=== PATIENT | male | born 1995 | race Caucasian/White ===

== ENCOUNTER 2020-01-09 23:52 | Emergency (ER) | payer OTHER ==
--- OUTSIDE RECORDS SUMMARY | 2020-01-10 00:17 | XMS ---
:1995 [facility] Providers Name Role Phone Chumaceiro, Abelardo Unavailable Unavailable Chumaceiro, Abelardo Unavailable Unavailable Chumaceiro, Abelardo Unavailable Unavailable Chumaceiro, Abelardo Unavailable Unavailable Chumaceiro, Abelardo Unavailable Unavailable Chumaceiro, Abelardo Unavailable Unavailable Chumaceiro, Abelardo Unavailable Unavailable Chumaceiro, Abelardo Unavailable Unavailable ED STAFF PHYSICIAN, STAFF Unavailable Unavailable AUGUSTUS Khoury Unavailable Unavailable VEENA GALLEGO Unavailable Unavailable Re-disclosure Warning The records that you are about to access may contain information from federally- assisted alcohol or drug abuse programs. If such information is present, then the following federally mandated warning applies: This information has been disclosed to you from records protected by federal confidentiality rules (42 CFR part 2). The federal rules prohibit you from making any further disclosure of this information unless further disclosure is expressly permitted by the written consent of the person to whom it pertains or as otherwise permitted by 42 CFR part 2. A general authorization for the release of medical or other information is NOT sufficient for this purpose. The Federal rules restrict any use of the information to criminally investigate or prosecute any alcohol or drug abuse patient.The records that you are about to access may contain highly sensitive health information, the redisclosure of which is protected by Article 27-F of the [place] Public Health law. If you continue you may haveaccess to information: Regarding HIV / AIDS; Provided by facilities licensed or operated by the [facility] Office of Mental Health; or Provided by the [facility] Office for People With Developmental Disabilities. If such information is present, then the following [facility] mandated warning applies: This information has been disclosed to you from confidential records which are protected by state law. State law prohibits you from making any further disclosure of this information without the specific written consent of the person to whom it pertains, or as otherwise permitted by law. Any unauthorized further disclosure in violation of state law may result in a fine or skilled nursing sentence or both. A general authorization for the release of medical or other information is NOT sufficient authorization for further disclosure. Encounters Encounter Providers Location Date Indications Data Source(s ) Attender: Abelardo 12/22/2019 [facility] EDT Office Attender: Abelardo 12/22/2019 12:00:00 AM EDT [facility] ([facility] Office Attender: Abelardo 12/22/2019 12:00:00 AM EDT [facility] ([facility] Office Attender: Abelardo 12/22/2019 12:00:00 AM EDT [facility] ([facility] Office Attender: Abelardo 12/22/2019 12:00:00 AM EDT [facility] ([facility] Office Attender: Abelardo 12/22/2019 12:00:00 AM EDT [facility] ([facility] Office Attender: Abelardo 11/20/2019 12:00:00 AM EDT [facility] ([facility] Office Attender: Abelardo 11/20/2019 12:00:00 AM EDT [facility] ([facility] Office Attender: Abelardo 11/20/2019 12:00:00 AM EDT [facility] ([facility] Office Attender: Abelardo 11/20/2019 12:00:00 AM EDT [facility] ([facility] Office Attender: Abelardo 10/21/2019 12:00:00 AM EDT [facility] ([facility]) Office Attender: Abelardo 10/21/2019 12:00:00 AM EDT [facility] ([facility]) Office Attender: Abelardo 10/21/2019 12:00:00 AM EDT [facility] ([facility]) Office Attender: Abelardo 10/21/2019 12:00:00 AM EDT [facility] ([facility]) Office Attender: Abelardo 10/21/2019 12:00:00 AM EDT [facility] ([facility]) Office Emergency Attender: STAFF ED STAFF H 10/15/2019 07:18:00 PM [facility] PHYSICIAN EDT - 2019 02:26:00 Center AM EDT Patient discharged. Emergency Attender: VEENA Walker 09/07/2019 03:03 :00 PM [facility] Leana: STAFF ED STAFF EDT - 09/07/2019 [facility] PHYSICIANAdmitter: VEENA 04:37:00 PM EDT ABBY Diego Patient discharged. Emergency Attender: AUGUSTUS Walker 03/09/2019 09:43:00 PM [facility] ED STAFF EST - 03/10/2019 [facility] PHYSICIANAdmitter: AUGUSTUS 01:30:00 AM GLORIA Khoury Patient discharged. Insurance Providers Payer name Policy type Policy ID Covered Covered green party's Policy P kassie / Coverage green party ID relationship to [facility] ormation type mireles MEDICARE [id number] SP [id number] MEDICAID [id number] SP [id number] MEDICARE [id number] SP [id number] R33 [facility] [id number] HEALTH PLAN MEDICAID OF [id number] [facility] MEDICARE [id number] 1 [id number] PART B DOWNSTATE W [id number] 01 [id number] CASSIE [place] [id number] Problems, Conditions, and Diagnoses Code Display Name Description Problem Type Effective Data Sour ce(s) Dates J45.20 Mild intermittent MILD INTERMITTENT Problem 12/22/2019 [facility] ([facility] asthma, ASTHMA, 12:00:00 AM [facility], ) G47.30 Sleep apnea, SLEEP APNEA, Problem 12/22/2019 [facility] (St unspecified UNSPECIFIED 12:00:00 AM [facility], ) R23.8 Other skin changes OTHER SKIN CHANGES Problem 0 [facility] (St 12:00:00 AM [facility], ) R07.89 Other chest pain OTHER CHEST PAIN Problem 10/21/2019 [facility] (St 12:00:00 AM [facility], ) R23.8 Other skin changes OTHER SKIN CHANGES Problem 0 [facility] (St 12:00:00 AM [facility], ) R07.89 Other chest pain OTHER CHEST PAIN Problem 10/21/2019 [facility] (St 12:00:00 AM [facility], ) R23.8 Other skin changes OTHER SKIN CHANGES Problem 0 [facility] (St 12:00:00 AM [facility], ) R07.89 Other chest pain OTHER CHEST PAIN Problem 10/21/2019 ME D[facility] (St 12:00:00 AM [facility], ) I10 Essential (primary) ESSENTIAL Diagnosis 10/15/2019 [facility] hypertension (PRIMARY) 07:18:[address] HYPERTENSION EDT E11.9 Type 2 diabetes TYPE 2 DIABETES Diagnosis 10/15/2019 Bobby thakkar [facility] mellitus without MELLITUS WITHOUT 07:18:00 PM [facility] complications COMPLICATIONS EDT R22.2 Localized swelling, LOCALIZED Diagnosis 10/15/2019 [facility] mass and lump, SWELLING, MASS AND 07:18:00 PM edical Center trunk LUMP, TRUNK EDT R07.9 Chest pain, CHEST PAIN, Diagnosis 10/15/2019 [place] [facility] unspecified UNSPECIFIED 07:18:[address] EDT 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 0 [facility] 03:03:00 PM Medical [facility] EDT Z00.00 Encounter for ENCNTR FOR GENERAL Diagnosis 09/07/2019 Andrés Avila general adult ADULT MEDICAL EXAM 03:03:00 PM [facility] medical examination W/O ABNORMAL EDT without abnormal FINDINGS findings E11.65 Type 2 diabetes TYPE 2 DIABETES Diagnosis 03/09/2019 Bobby Avila mellitus with MELLITUS WITH 09:43:00 PM Medical Center hyperglycemia HYPERGLYCEMIA EST R73.9 Hyperglycemia, HYPERGLYCEMIA, Diagnosis 03/09/2019 [facility] unspecified UNSPECIFIED 09:43:[address] EST Surgeries/Procedures Procedure Description Date Indications Data Source(s) OFFICE OUTPATIENT VISIT 15 12/22/2019 Bisi SOTON ([facility] MINUTES 12:00:00 AM [facility], ) COLLECTION VENOUS BLOOD 12/22/2019 MEDG EN ([facility] VENIPUNCTURE 12:00:00 AM [facility], ) Documentation of current 11/20/2019 MED GEN ([facility] medications (procedure) 12:00:00 AM EDT [facility], ) Documentation of current 11/20/2019 [facility] ([facility] medications (procedure) 12:00:00 [facility] Documentation of current 11/20/2019 [facility] ([facility] medications (procedure) 12:00:00 AM EDT [place], ) Documentation of current 11/20/2019 [facility] ([facility] medications (procedure) 12:00:00 [facility] Documentation of current 11/20/2019 [facility] ([facility] medications (procedure) 12:00:00 AM EDT [place], ) Documentation of current 11/20/2019 [facility] ([facility] medications (procedure) 12:00:00 AM EDT [place], ) Documentation of current 11/20/2019 [facility] ([facility] medications (procedure) 12:00:00 AM EDT [place], ) Documentation of current 11/20/2019 [facility] ([facility] medications (procedure) 12:00:00 AM EDT [place], ) OFFICE OUTPATIENT VISIT 10 11/20/2019 Bisi SOTON ([facility] MINUTES 12:00:00 AM [facility], ) GLUC BLD GLUC MNTR DEV 11/20/2019 MEDGE N ([facility] CLEARED FDA SPEC HOME USE 12:00:00 AM [facility], ) COLLECTION CAPILLARY BLOOD 11/20/2019 Bisi EDGEN ([facility] SPECIMEN 12:00:00 AM [facility], ) Documentation of current 11/20/2019 MED [facility] ([facility] medications (procedure) 12:00:00 AM [facility], ) GLUC BLD GLUC MNTR DEV 11/20/2019 MEDGE N ([facility] CLEARED FDA SPEC HOME USE 12:00:00 AM [facility], ) COLLECTION CAPILLARY BLOOD 11/20/2019 BRITTANYN ([facility] SPECIMEN 12:00:00 AM [facility], ) Documentation of current 10/21/2019 MED GEN ([facility] medications (procedure) 12:00:00 AM [facility], ) Documentation of current 10/21/2019 MED [facility] ([facility] medications (procedure) 12:00:00 AM [facility], ) Documentation of current 10/21/2019 MED [facility] ([facility] medications (procedure) 12:00:00 AM [facility], ) Documentation of current 10/21/2019 MED [facility] ([facility] medications (procedure) 12:00:00 AM [facility], ) OFFICE OUTPATIENT VISIT 25 10/21/2019 Bisi SOTON ([facility] MINUTES 12:00:00 AM [facility], ) ECG ROUTINE ECG W/LEAST 12 10/21/2019 Bisi EDGEN ([facility] LDS W/I&R 12:00:00 AM [facility], ) COLLECTION VENOUS BLOOD 10/21/2019 MEDG EN ([facility] VENIPUNCTURE 12:00:00 AM [facility], ) Documentation of current 10/21/2019 MED GEN ([facility] medications (procedure) 12:00:00 AM EDT [facility], ) Documentation of current 10/21/2019 MED [facility] ([facility] medications (procedure) 12:00:00 AM [facility], ) Documentation of current 10/21/2019 [facility] ([facility] medications (procedure) 12:00:00 AM EDT [facility], ) Documentation of current 10/21/2019 [facility]PATIENT VISIT 25 10/21/2019 M EDGEN ([facility] MINUTES 12:00:00 AM [facility], ) ECG ROUTINE ECG W/LEAST 12 10/21/2019 M EDGEN ([facility] LDS W/I&R 12:00:00 AM [facility], ) COLLECTION VENOUS BLOOD 10/21/2019 MEDG EN ([facility] VENIPUNCTURE 12:00:00 AM [facility], ) Documentation of current 10/21/2019 MED GEN ([facility] medications (procedure) 12:00:00 AM [facility], ) Documentation of current 10/21/2019 MED [facility] ([facility] medications (procedure) 12:00:00 AM [facility], ) OFFICE OUTPATIENT VISIT 25 10/21/2019 M EDGEN ([facility] MINUTES 12:00:00 AM [facility], ) ECG ROUTINE ECG W/LEAST 12 10/21/2019 EDGEN ([facility] LDS W/I&R 12:00:00 AM [facility], ) COLLECTION VENOUS BLOOD 10/21/2019 MEDG EN ([facility] VENIPUNCTURE 12:00:00 AM [facility], ) Documentation of current 02/07/2019 MED GEN ([facility] medications (procedure) 12:00:00 AM [facility]) Influenza virus vaccine, 02/07/2019 MED [facility] ([facility] split virus, when 12:00:00 AM [facility] , ) administered to individuals 3 years of age and older, for intramuscular use (flulaval) Administration of 02/07/2019 [facility] ([facility] influenza virus vaccine 12:00:[address] [facility]) OFFICE OUTPATIENT VISIT 15 02/07/2019 M EDGEN ([facility] MINUTES 12:00:00 AM [facility], ) Documentation of current 02/07/2019 MED GEN ([facility] medications (procedure) 12:00:00 AM [facility], ) Influenza virus vaccine, 02/07/2019 MED GEN ([facility] split virus, when 12:00:00 AM [facility]) administered to individuals 3 years of age and older, for intramuscular use (flulaval) Administration of 02/07/2019 [facility] ([facility] influenza virus vaccine 12:00:00 [facility] OFFICE OUTPATIENT VISIT 15 02/07/2019 Bisi ASHRAF ([facility] MINUTES 12:00:00 AM EST Medical, ) Documentation of current 02/07/2019 MED GEN ([facility] medications (procedure) 12:00:00 [facility] Influenza virus vaccine, 02/07/2019 MED GEN ([facility] split virus, when 12:00:00 AM EST [facility] , ) administered to individuals 3 years of age and older, for intramuscular use (flulaval) Administration of 02/07/2019 [facility] ([facility] influenza virus vaccine 12:00:00 AM EST edical, ) OFFICE OUTPATIENT VISIT 15 02/07/2019 Bisi SOTOVicenta ([facility] MINUTES 12:00:00 AM EST Medical, ) Results ID Date Data Source [id number] 10/21/2019 12:00:00 AM EDT [facility] Name Value Range Interpretation Code Description Data Liz rce(s) Supporting Document(s ) ID Date Data Source [id number] 10/21/2019 12:00:00 AM EDT [facility] ([facility] Name Value Range Interpretation Code Description Data Liz rce(s) Supporting Document(s ) PDF . Normal (applies to [facility] (St non-numeric results) [facility]) ID Date Data Source [id number] 10/21/2019 12:00:00 AM EDT [facility] ([facility] Name Value Range Interpretation Description Data Sup porting Code Source(s) Document(s ) Hemoglobin A1c 11.7 % Above high normal [facility] (St in Blood [facility]) ID Date Data Source [id number] 10/21/2019 12:00:00 AM EDT [facility] ([facility] Name Value Range Interpretation Description Data Sup porting Code Source(s) Document(s ) Bilirubin.c 0.43 mg/dL Above high normal [facility] (S t onjugated [facility] [Mass/volum Medical, PC) e] in Serum or Plasma ID Date Data Source [id number] 10/21/2019 12:00:00 AM EDT [facility] ( [facility], ) Name Value Range Interpretation Description Data Sup porting Code Source(s) Document(s ) Cholesterol 131 Normal (applies [facility] (St [Mass/volume] in mg/dL to non-numeric [facility] Serum or Plasma results) Medical, ) Triglyceride 554 Above upper panic [facility] (S t [Mass/volume] in mg/dL limits [facility] Serum or Plasma Medical, ) HDL Cholesterol 27 mg/dL Below low normal [facility] ([facility], ) VLDL Cholesterol Normal (applies [facility] (St [place] to non-numeric [facility] results) Medical, ) LDL Cholesterol Normal (applies [facility] ( St Calc to non-numeric [facility] results) Medical, ) ID Date Data Source [id number] 10/21/2019 12:00:00 AM EDT [facility] ([facility], ) Name Value Range Interpretation Description Data Sup porting Code Source(s) Document(s ) Glucose 301 Above high [facility] (St [Mass/volume] in mg/dL normal [facility] Urine collected for Medical, unspecified PC) duration Urea nitrogen 10 mg/dL Normal (applies [facility] (St [Mass/volume] in to non-numeric [facility] Serum or Plasma results) [facility], PC) Creatinine 0.62 Below low normal [facility] (St [Interpretation] in mg/dL [facility], ) eGFR If NonAfricn 137 Normal (applies [facility] (St Am mL/min/1 to non-numeric [facility] .73 results) [facility], PC) eGFR If Africn Am 158 Normal (applies [facility] (St mL/min/1 to non-numeric [facility] .73 results) Medical, PC) BUN/Creatinine 16 Normal (applies [facility] (S t Ratio to non-numeric [facility] results) [facility], PC) Sodium 136 Normal (applies [facility] (St [Moles/volume] in mmol/L to non-numeric [facility] Serum or Plasma results) Medical, PC) Chloride 95 Below low normal [facility] (St [Moles/volume] in mmol/L [facility] Serum or Plasma Medical, ) Potassium 4.3 Normal (applies [facility] (St [Mass/volume] in mmol/L to non-numeric [facility] Blood results) [facility], PC) Carbon dioxide, 22 Normal (applies [facility] ( St total mmol/L to non-numeric [facility] [Moles/volume] in results) Medical, Serum or Plasma PC) Calcium 9.8 Normal (applies [facility] (St [Moles/volume] in mg/dL to non-numeric [facility] Urine collected for results) Medical, unspecified PC) duration Protein 7.6 g/dL Normal (applies [facility] (St [Mass/volume] in to non-numeric [facility] Serum or Plasma results) Medical, ) Microalbumin 5.0 g/dL Normal (applies [facility] (St [Mass/time] in to non-numeric [facility] Urine collected for results) Medical, unspecified PC) duration Globulin, Total 2.6 g/dL Normal (applies [facility] ( St to non-numeric [facility] results) Medical, ) A/G Ratio 1.9 Normal (applies [facility] (St to non-numeric [facility] results) Medical, ) Bilirubin.total 2.5 Above high [facility] (St [Mass/volume] in mg/dL normal [facility] Serum or Plasma Medical, ) Aspartate 29 IU/L Normal (applies [facility] (St aminotransferase to non-numeric [facility] [Enzymatic results) Medical, activity/volume] in PC) Serum or Plasma Alkaline 95 IU/L Normal (applies [facility] (St phosphatase to non-numeric [facility] [Enzymatic results) Medical, activity/volume] in PC) Serum, Plasma or Blood Alanine 50 IU/L Above high [facility] (St aminotransferase normal [facility] [Enzymatic Medical, activity/volume] in PC) Serum or Plasma ID Date Data Source [id number] 10/21/2019 12:00:00 AM EDT [facility], ) Name Value Range Interpretation Description Data Sup porting Code Source(s) Document(s ) Leukocytes 10.3 Normal (applies [facility] (St [#/volume] in x10E3/uL to non-numeric [facility] Blood by results) Medical, ) Automated count Erythrocytes 5.84 Above high normal [facility] (S t [#/volume] in x10E6/uL [facility] Blood by Medical, ) Automated count Hemoglobin 16.8 Normal (applies [facility] (St [Mass/volume] in g/dL to non-numeric [facility] Blood results) Medical, ) Hematocrit 49.5 % Normal (applies [facility] (St [Volume to non-numeric [facility] Fraction] of results) [facility], ) Blood by Automated count MCV 85 fL Normal (applies [facility] (St to non-numeric [facility] results) [facility], ) MCH 28.8 pg Normal (applies [facility] (St to non-numeric [facility] results) [facility], ) MCHC 33.9 Normal (applies [facility] (St g/dL to non-numeric [facility] results) [facility], ) RDW 13.6 % Normal (applies [facility] (St to non-numeric [facility] results) [facility], ) Platelets 286 Normal (applies [facility] (St [#/area] in x10E3/uL to non-numeric [facility] Blood by results) [facility], ) Microscopy high power field Lymphs 36 % Normal (applies [facility] (St to non-numeric [facility] results) [facility], ) Neutrophils [#] 54 % Normal (applies [facility] ( St in Body fluid by to non-numeric [facility] Manual count results) [facility], ) Monocytes 6 % Normal (applies [facility] (St [#/volume] in to non-numeric [facility] Cord blood results) [facility], ) Eos 2 % Normal (applies [facility] (St to non-numeric [facility] results) [facility], ) Basos 1 % Normal (applies [facility] (St to non-numeric [facility] results) [facility], ) Neutrophils 5.7 Normal (applies [facility] (St (Absolute) x10E3/uL to non-numeric [facility] results) [facility], ) Lymphs 3.7 Above high normal [facility] (St (Absolute) x10E3/uL [facility], ) Monocytes(Absolu 0.6 Normal (applies [facility] (St te) x10E3/uL to non-numeric [facility] results) [facility], ) Eos (Absolute) 0.2 Normal (applies [facility] (S t x10E3/uL to non-numeric [facility] results) [facility], ) Baso (Absolute) 0.1 Normal (applies [facility] ( St x10E3/uL to non-numeric [facility] results) [facility], ) Immature Grans 0.1 Normal (applies [facility] (S t (Abs) x10E3/uL to non-numeric [facility] results) Medical, ) Immature 1 % Normal (applies [facility] (St Granulocytes to non-numeric [facility] results) [facility], ) ID Date Data Source [id number] 10/21/2019 12:00:00 AM EDT [facility] ([facility], ) Name Value Range Interpretation Code Description Data Liz rce(s) Supporting Document(s ) ID Date Data Source [id number] 10/21/2019 12:00:00 AM EDT [facility] ([facility], ) Name Value Range Interpretation Code Description Data Liz rce(s) Supporting Document(s ) PDF . Normal (applies to [facility] (St non-numeric results) [facility], ) ID Date Data Source [id number] 10/21/2019 12:00:00 AM EDT [facility] ([facility], ) Name Value Range Interpretation Description Data Sup porting Code Source(s) Document(s ) Hemoglobin A1c 11.7 % Above high normal [facility] (St in Blood [facility], ) ID Date Data Source [id number] 10/21/2019 12:00:00 AM EDT [facility] ([facility], ) Name Value Range Interpretation Description Data Sup porting Code Source(s) Document(s ) Bilirubin.c 0.43 mg/dL Above high normal [facility] (S t onjugated [facility] [Mass/volum [facility], ) e] in Serum or Plasma ID Date Data Source [id number] 10/21/2019 12:00:00 AM EDT [facility] ([facility], ) Name Value Range Interpretation Description Data Sup porting Code Source(s) Document(s ) Cholesterol 131 Normal (applies [facility] (St [Mass/volume] in mg/dL to non-numeric [facility] Serum or Plasma results) [facility], ) Triglyceride 554 Above upper panic [facility] (S t [Mass/volume] in mg/dL limits [facility] Serum or Plasma [facility], ) HDL Cholesterol 27 mg/dL Below low normal [facility] ([facility], ) VLDL Cholesterol Normal (applies [facility] ([facility] to non-numeric [facility] results) Medical, ) LDL Cholesterol Normal (applies [facility] ( St Calc to non-numeric [facility] results) [facility], PC) ID Date Data Source [id number] 10/21/2019 12:00:00 AM EDT [facility] Name Value Range Interpretation Description Data Sup porting Code Source(s) Document(s ) Glucose 301 Above high [facility] (St [Mass/volume] in mg/dL normal [facility] Urine collected for Medical, unspecified PC) duration Urea nitrogen 10 mg/dL Normal (applies [facility] (St [Mass/volume] in to non-numeric [facility] Serum or Plasma results) Medical, PC) Creatinine 0.62 Below low normal [facility] (St [Interpretation] in mg/dL [facility] Urine [facility], [facility]) eGFR If NonAfricn 137 Normal (applies [facility] (St Am mL/min/1 to non-numeric [facility] .73 results) Medical, PC) eGFR If Africn Am 158 Normal (applies [facility] (St mL/min/1 to non-numeric [facility] .73 results) Medical, PC) BUN/Creatinine 16 Normal (applies [facility] (S t Ratio to non-numeric [facility] results) Medical, PC) Sodium 136 Normal (applies [facility] (St [Moles/volume] in mmol/L to non-numeric [facility] Serum or Plasma results) Medical, PC) Potassium 4.3 Normal (applies [facility] (St [Mass/volume] in mmol/L to non-numeric [facility] Blood results) Medical, PC) Chloride 95 Below low normal [facility] (St [Moles/volume] in mmol/L [facility] Serum or Plasma [facility], PC) Carbon dioxide, 22 Normal (applies [facility] ( St total mmol/L to non-numeric [facility] [Moles/volume] in results) Medical, Serum or Plasma PC) Calcium 9.8 Normal (applies [facility] (St [Moles/volume] in mg/dL to non-numeric [facility] Urine collected for results) Medical, unspecified PC) duration Protein 7.6 g/dL Normal (applies [facility] (St [Mass/volume] in to non-numeric [facility] Serum or Plasma results) Medical, PC) Microalbumin 5.0 g/dL Normal (applies [facility] (St [Mass/time] in to non-numeric [facility] Urine collected for results) Medical, unspecified PC) duration Globulin, Total 2.6 g/dL Normal (applies [facility]GEN ( St to non-numeric [facility] results) Medical, ) A/G Ratio 1.9 Normal (applies [facility] (St to non-numeric [facility] results) Medical, ) Bilirubin.total 2.5 Above high [facility] (St [Mass/volume] in mg/dL normal [facility] Serum or Plasma Medical, ) Aspartate 29 IU/L Normal (applies [facility] (St aminotransferase to non-numeric [facility] [Enzymatic results) Medical, activity/volume] in PC) Serum or Plasma Alkaline 95 IU/L Normal (applies [facility] (St phosphatase to non-numeric [facility] [Enzymatic results) Medical, activity/volume] in ) Serum, Plasma or Blood Alanine 50 IU/L Above high [facility] (St aminotransferase normal [facility] [Enzymatic Medical, activity/volume] in ) Serum or Plasma ID Date Data Source [id number] 10/21/2019 12:00:00 AM EDT [facility], ) Name Value Range Interpretation Description Data Sup porting Code Source(s) Document(s ) Leukocytes 10.3 Normal (applies [facility] (St [#/volume] in x10E3/uL to non-numeric [facility] Blood by results) Medical, ) Automated count Erythrocytes 5.84 Above high normal [facility]GEN (S t [#/volume] in x10E6/uL [facility] Blood by Medical, ) Automated count Hemoglobin 16.8 Normal (applies [facility] (St [Mass/volume] in g/dL to non-numeric [facility] Blood results) Medical, ) Hematocrit 49.5 % Normal (applies [facility] (St [Volume to non-numeric [facility] Fraction] of results) Medical, ) Blood by Automated count MCV 85 fL Normal (applies [facility] (St to non-numeric [facility] results) Medical, ) MCH 28.8 pg Normal (applies [facility] (St to non-numeric [facility] results) Medical, ) MCHC 33.9 Normal (applies [facility] (St g/dL to non-numeric [facility] results) Medical, ) RDW 13.6 % Normal (applies [facility] (St to non-numeric [facility] results) Medical, ) Platelets 286 Normal (applies [facility] (St [#/area] in x10E3/uL to non-numeric [facility] Blood by results) [facility], ) Microscopy high power field Neutrophils [#] 54 % Normal (applies [facility] ( St in Body fluid by to non-numeric [facility] Manual count results) [facility]) Lymphs 36 % Normal (applies [facility] (St to non-numeric [facility] results) [facility]) Monocytes 6 % Normal (applies [facility] (St [#/volume] in to non-numeric [facility] Cord blood results) [facility]) Eos 2 % Normal (applies [facility] (St to non-numeric [facility] results) [facility]) Neutrophils 5.7 Normal (applies [facility] (St (Absolute) x10E3/uL to non-numeric [facility] results) [facility]) Basos 1 % Normal (applies [facility] (St to non-numeric [facility] results) [facility]) Lymphs 3.7 Above high normal [facility] (St (Absolute) x10E3/uL [facility]) Monocytes(Absolu 0.6 Normal (applies [facility] (St te) x10E3/uL to non-numeric [facility] results) [facility]) Eos (Absolute) 0.2 Normal (applies [facility] (S t x10E3/uL to non-numeric [facility] results) [facility]) Baso (Absolute) 0.1 Normal (applies [facility] ( St x10E3/uL to non-numeric [facility] results) [facility]) Immature 1 % Normal (applies [facility] (St Granulocytes to non-numeric [facility] results) [facility]) Immature Grans 0.1 Normal (applies [facility] (S t (Abs) x10E3/uL to non-numeric [facility] results) [facility]) ID Date Data Source [id number] 03/09/2019 11:10:00 PM EST [facility] 0500 Name Value Range Interpretation Description Data Sup porting Code Source(s) Document(s ) Leukocytes 4.4-11.0 <content [facility] [#/volume] in styleCode="Bold [facility] Blood by ">White Blood Medical Automated count Cell Count Center </content>10.85 KCUMM<content styleCode="Ital ics"> (4.4-11.0 KCUMM)</content > Erythrocytes 4.4-5.9 Above high <content [facility] [#/volume] in normal styleCode="[facility] Blood by ">Red Blood Medical Automated count Cell Count Center </content>5.97 MCUMM H<content styleCode="Ital ics"> (4.4-5.9 MCUMM)</content > Erythrocyte mean 80.0-100 <content [facility] corpuscular .0 styleCode="Bold [facility] volume [Entitic ">Mean Medical volume] by Corpuscular Center Automated count Volume </content>82.2 FL<content styleCode="Ital ics"> (80.0-100.0 FL)</content> Hematocrit 41.0-53. <content [facility] [Volume 0 styleCode="Bold [facility] Fraction] of ">Hematocrit Medical Blood by </content>49.1 Center Automated count %<content styleCode="Ital ics"> (41.0-53.0 %)</content> Erythrocyte mean 26.0-34. <content [facility] corpuscular 0 styleCode="Bold [facility] hemoglobin ">Mean Medical [Entitic mass] Corposcular Center by Automated Hemoglobin count </content>28.8 PG<content styleCode="Ital ics"> (26.0-34.0 PG)</content> Hemoglobin 13.5-17. <content [facility] [Mass/volume] in 5 styleCode="Bold [facility] Blood ">Hemoglobin Medical </content>17.2 Center G/DL<content styleCode="Ital ics"> (13.5-17.5 G/DL)</content> Erythrocyte mean 32.0-37. <content [facility] corpuscular 0 styleCode="Bold [facility] hemoglobin ">Mean Corpus. Medical concentration Hgb Center [Mass/volume] by Concentration Automated count (MCHC) </content>35.0 G/DL<content styleCode="Ital ics"> (32.0-37.0 G/DL)</content> UNK 1.6-7.3 <content [facility] styleCode="Bold [facility] ">Neutrophil Medical Count Center </content>5.64 KCUMM<content styleCode="Ital ics"> (1.6-7.3 KCUMM)</content > Platelet mean 8.0-11.0 <content [facility] volume [Entitic styleCode="Bold [facility] volume] in Blood ">Mean Platelet Medical by Automated Volume Center count </content>10.4 FL<content styleCode="Ital ics"> (8.0-11.0 FL)</content> Erythrocyte 11.5-14. <content [facility] distribution 5 styleCode="Bold [facility] width [Ratio] by ">Red Cell Medical Automated count Distribution Center Width </content>12.2 %<content styleCode="Ital ics"> (11.5-14.5 %)</content> Platelets 130-400 <content [facility] [#/volume] in styleCode="[facility] Blood by ">Platelet Medical Automated count Count Center </content>269 KCUMM<content styleCode="Ital ics"> (130-400 KCUMM)</content > Neutrophils 36-66 <content [facility] [#/volume] in styleCode="[facility] Blood by ">Neutrophil Medical Automated count </content>51.9 Center %<content styleCode="Ital ics"> (36-66 %)</content> Lymphocytes 24.0-44. <content [facility] [#/volume] in 0 styleCode="[facility] Blood by ">Lymphocyte Medical Automated count </content>40.4 Center %<content styleCode="Ital ics"> (24.0-44.0 %)</content> Eosinophils 0-5.0 <content [facility] [#/volume] in styleCode="[facility] Blood by ">Eosinophil Medical Automated count </content>1.9 Center %<content styleCode="Ital ics"> (0-5.0 %)</content> UNK 1.0-4.8 <content [facility] styleCode="[facility] ">Lymphocyte Medical Count Center </content>4.38 KCUMM<content styleCode="Ital ics"> (1.0-4.8 KCUMM)</content > UNK 0.2-0.9 <content [facility] styleCode="[facility] ">Monocyte Medical Count Center </content>0.54 KCUMM<content styleCode="Ital ics"> (0.2-0.9 KCUMM)</content > Monocytes 3.0-10.0 <content [facility] [#/volume] in styleCode="[facility] Blood by ">Monocyte Medical Automated count </content>5.0 Center %<content styleCode="Ital ics"> (3.0-10.0 %)</content> UNK 0.0 <content [facility] styleCode="[facility] ">Nucleated Red Medical Blood Cell Center Count </content>0.00 KCUMM<content styleCode="Ital ics"> (0.0 KCUMM)</content > UNK 0.0-0.6 <content [facility] styleCode="[facility] ">Eosinophil Medical Count Center </content>0.21 KCUMM<content styleCode="Ital ics"> (0.0-0.6 KCUMM)</content > Basophils 0.0-1.0 <content [facility] [#/volume] in styleCode="[facility] Blood by ">Basophil Medical Automated count </content>0.5 Center %<content styleCode="Ital ics"> (0.0-1.0 %)</content> UNK 0.0-0.3 <content [facility] styleCode="[facility] ">Basophil Medical Count Center </content>0.05 KCUMM<content styleCode="Ital ics"> (0.0-0.3 KCUMM)</content > UNK 0 <content [facility] styleCode="B[facility] ">Nucleated Red Medical Blood Cell Center </content>0.0 /100<content styleCode="Ital ics"> (0 /100)</content> UNK 0-0.1 <content [facility] styleCode="[facility] ">Immature Medical Granulocyte Center Count </content>0.03 KCUMM<content styleCode="Ital ics"> (0-0.1 KCUMM)</content > UNK < 1 <content [facility] styleCode="B[facility] ">Immature Medical Granulocyte Center Ratio </content>0.3 %<content styleCode="Ital ics"> (< 1 %)</content> ID Date Data Source GFR(Creatinine).[id number] 03/09/2019 11:10:00 PM EST [facility] 0-0500 Name Value Range Interpretation Code Description Data Liz rce(s) Supporting Document(s ) UNK > 60 <content [facility] styleCode="Bold"> Medical Cent er EGFR </content>174 GFR<content styleCode="Italic s"> (> 60 GFR)</content> ID Date Data Source [id number] 03/09/2019 11:10:00 PM EST [facility] -0500 Name Value Range Interpretation Code Description Data Liz rce(s) Supporting Document(s ) UNK NEGATIVE <content [facility] styleCode="Bold" Medical Cente r >Acetone </content>NEGATI VE <content styleCode="Itali cs"> (NEGATIVE )</content> ID Date Data Source [id number] 03/09/2019 11:10:00 PM EST [facility] Name Value Range Interpretation Description Data Sup porting Code Source(s) Document(s ) Sodium 137-145 <content [facility] [Moles/volume] styleCode="Gen Margarita in Serum or d">Sodium Medical Plasma </content>138 Center MEQ/L<content styleCode="Delisa lics"> (137-145 MEQ/L)</conten t> UNK 9-20 <content [facility] styleCode="Gen Margarita d">BUN Medical </content>13 Center MG/DL<content styleCode="Delisa lics"> (9-20 MG/DL)</conten t> Chloride 98-107 <content [facility] [Moles/volume] styleCode="Gen [facility] in Serum or d">Chloride Medical Plasma </content>99 Center MEQ/L<content styleCode="Delisa lics"> (98-107 MEQ/L)</conten t> Creatinine 0.5-1.3 <content [facility] [Mass/volume] styleCode="Gen Margarita in Serum or d">Creatinine Medical Plasma </content>0.6 Center MG/DL<content styleCode="Delisa lics"> (0.5-1.3 MG/DL)</conten t> Potassium 3.5-5.3 <content [facility] [Moles/volume] styleCode="Gen [facility]arita in Serum or d">Potassium Medical Plasma </content>4.2 Center MEQ/L<content styleCode="Delisa lics"> (3.5-5.3 MEQ/L)</conten t> Carbon 22-30 <content [facility] dioxide, total styleCode="Gen Margarita [Moles/volume] d">Carbon Medical in Serum or Dioxide Center Plasma </content>25 MEQ/L<content styleCode="Delisa lics"> (22-30 MEQ/L)</conten t> Glucose 74-106 Above high normal <content [facility] [Mass/volume] styleCode="Gen [facility]ita in Serum or d">Glucose Medical Plasma </content>335 Center MG/DL H<content styleCode="Delisa lics"> (74-106 MG/DL)</conten t> Calcium 8.4-10.2 Above high normal <content [facility] [Mass/volume] styleCode="Gen Margarita in Serum or d">Calcium Medical Plasma </content>10.5 Center MG/DL H<content styleCode="Delisa lics"> (8.4-10.2 MG/DL)</conten t> UNK > 60 <content [facility] styleCode="Gen Margarita d">EGFR Medical </content>174 Center GFR<content styleCode="Delisa lics"> (> 60 GFR)</content> ID Date Data Source [id number] 02/07/2019 12:00:00 AM EST [facility], ) Name Value Range Interpretation Code Description Data Liz rce(s) Supporting Document(s ) ID Date Data Source [id number] 02/07/2019 12:00:00 AM EST [facility] ([facility], ) Name Value Range Interpretation Code Description Data Liz rce(s) Supporting Document(s ) PDF Image . Normal (applies to [facility] (St non-numeric results) [facility] scanlon, ) ID Date Data Source [id number] 02/07/2019 12:00:00 AM EST [facility] ([facility], ) Name Value Range Interpretation Description Data Sup porting Code Source(s) Document(s ) No Lavender Test not Normal (applies to MEDGEN (S t Received performed non-numeric [facility] . results) Medical, ) ID Date Data Source [id number] 02/07/2019 12:00:00 AM EST [facility] ([facility]) Name Value Range Interpretation Description Data Sup porting Code Source(s) Document(s ) Bilirubin.c 0.34 mg/dL Normal (applies to [facility] ( St onjugated non-numeric [facility] [Mass/volum results) Medical, ) e] in Serum or Plasma ID Date Data Source [id number] 02/07/2019 12:00:00 AM EST [facility] ([facility]) Name Value Range Interpretation Description Data Sup porting Code Source(s) Document(s ) Glucose 283 Above high [facility] (St [Mass/volume] in mg/dL normal [facility] Urine collected for Medical, unspecified PC) duration Urea nitrogen 5 mg/dL Below low normal [facility] (S t [Mass/volume] in [facility] Serum or Plasma [facility], ) eGFR If NonAfricn 129 Normal (applies [facility] (St Am mL/min/1 to non-numeric [facility] .73 results) [facility], ) Creatinine 0.73 Below low normal [facility] (St [Interpretation] in mg/dL [facility] Urine [facility], ) eGFR If Africn Am 149 Normal (applies [facility] (St mL/min/1 to non-numeric [facility] .73 results) Medical, ) Sodium 141 Normal (applies [facility] (St [Moles/volume] in mmol/L to non-numeric [facility] Serum or Plasma results) Medical, ) BUN/Creatinine 7 Below low normal [facility] ( St Ratio [facility], ) Potassium 4.4 Normal (applies [facility] (St [Mass/volume] in mmol/L to non-numeric [facility] Blood results) Medical, ) Chloride 100 Normal (applies [facility] (St [Moles/volume] in mmol/L to non-numeric [facility] Serum or Plasma results) Medical, ) Calcium 10.1 Normal (applies [facility] (St [Moles/volume] in mg/dL to non-numeric [facility] Urine collected for results) Medical, unspecified PC) duration Carbon dioxide, 22 Normal (applies [facility] ( St total mmol/L to non-numeric [facility] [Moles/volume] in results) Medical, Serum or Plasma PC) Protein 7.4 g/dL Normal (applies [facility] (St [Mass/volume] in to non-numeric [facility] Serum or Plasma results) Medical, PC) Microalbumin 4.8 g/dL Normal (applies [facility] (St [Mass/time] in to non-numeric [facility] Urine collected for results) Medical, unspecified PC) duration A/G Ratio 1.8 Normal (applies [facility] (St to non-numeric [facility] results) Medical, PC) Globulin, Total 2.6 g/dL Normal (applies [facility] ( St to non-numeric [facility] results) Medical, PC) Bilirubin.total 1.9 Above high [facility] (St [Mass/volume] in mg/dL normal [facility] Serum or Plasma Medical, PC) Alkaline 98 IU/L Normal (applies [facility] (St phosphatase to non-numeric [facility] [Enzymatic results) Medical, activity/volume] in PC) Serum, Plasma or Blood Aspartate 45 IU/L Above high [facility] (St aminotransferase normal [facility] [Enzymatic Medical, activity/volume] in PC) Serum or Plasma Alanine 70 IU/L Above high [facility] (St aminotransferase normal [facility] [Enzymatic Medical, activity/volume] in PC) Serum or Plasma ID Date Data Source [id number] 02/07/2019 12:00:00 AM EST [facility] Name Value Range Interpretation Code Description Data Liz rce(s) Supporting Document(s ) ID Date Data Source [id number] 02/07/2019 12:00:00 AM EST [facility] ([facility] Name Value Range Interpretation Code Description Data Liz rce(s) Supporting Document(s ) PDF Image . Normal (applies to [facility] (St non-numeric results) [facility] d[facility], PC) ID Date Data Source [id number] 02/07/2019 12:00:00 AM EST [facility] ([facility] Name Value Range Interpretation Description Data Sup porting Code Source(s) Document(s ) No Lavender Test not Normal (applies to [facility] (S t Received performed non-numeric [facility] . results) Medical, ) ID Date Data Source [id number] 02/07/2019 12:00:00 AM EST [facility] ( [facility], ) Name Value Range Interpretation Description Data Sup porting Code Source(s) Document(s ) Bilirubin.c 0.34 mg/dL Normal (applies to MEDGEN ( St onjugated non-numeric [facility] [Mass/volum results) Medical, ) e] in Serum or Plasma ID Date Data Source [id number] 02/07/2019 12:00:00 AM EST [facility] ( [facility], ) Name Value Range Interpretation Description Data Sup porting Code Source(s) Document(s ) Glucose 283 Above high [facility] (St [Mass/volume] in mg/dL normal [facility] Urine collected for Medical, unspecified PC) duration Urea nitrogen 5 mg/dL Below low normal [facility] (S t [Mass/volume] in [facility] Serum or Plasma Medical, ) Creatinine 0.73 Below low normal [facility] (St [Interpretation] in mg/dL [facility] Urine [facility], ) eGFR If Africn Am 149 Normal (applies [facility] (St mL/min/1 to non-numeric [facility] .73 results) Medical, ) eGFR If NonAfricn 129 Normal (applies [facility] (St Am mL/min/1 to non-numeric [facility] .73 results) Medical, ) BUN/Creatinine 7 Below low normal [facility] ( St Ratio [facility], ) Sodium 141 Normal (applies [facility] (St [Moles/volume] in mmol/L to non-numeric [facility] Serum or Plasma results) Medical, ) Potassium 4.4 Normal (applies [facility] (St [Mass/volume] in mmol/L to non-numeric [facility] Blood results) Medical, ) Chloride 100 Normal (applies [facility] (St [Moles/volume] in mmol/L to non-numeric [facility] Serum or Plasma results) [facility], ) Carbon dioxide, 22 Normal (applies [facility] ( St total mmol/L to non-numeric [facility] [Moles/volume] in results) Medical, Serum or Plasma PC) Calcium 10.1 Normal (applies [facility] (St [Moles/volume] in mg/dL to non-numeric [facility] Urine collected for results) Medical, unspecified PC) duration Protein 7.4 g/dL Normal (applies [facility] (St [Mass/volume] in to non-numeric [facility] Serum or Plasma results) Medical, PC) Microalbumin 4.8 g/dL Normal (applies [facility] (St [Mass/time] in to non-numeric [facility] Urine collected for results) Medical, unspecified PC) duration A/G Ratio 1.8 Normal (applies [facility] (St to non-numeric [facility] results) Medical, PC) Globulin, Total 2.6 g/dL Normal (applies [facility] ( St to non-numeric [facility] results) Medical, PC) Alkaline 98 IU/L Normal (applies [facility] (St phosphatase to non-numeric [facility] [Enzymatic results) Medical, activity/volume] in PC) Serum, Plasma or Blood Bilirubin.total 1.9 Above high [facility] (St [Mass/volume] in mg/dL normal [facility] Serum or Plasma Medical, PC) Aspartate 45 IU/L Above high [facility] (St aminotransferase normal [facility] [Enzymatic Medical, activity/volume] in PC) Serum or Plasma Alanine 70 IU/L Above high [facility] (St aminotransferase normal [facility] [Enzymatic Medical, activity/volume] in PC) Serum or Plasma ID Date Data Source [id number] 02/07/2019 12:00:00 AM EST [facility] ([facility] Name Value Range Interpretation Code Description Data Liz rce(s) Supporting Document(s ) ID Date Data Source [id number] 02/07/2019 12:00:00 AM EST [facility] ([facility] Name Value Range Interpretation Code Description Data Liz rce(s) Supporting Document(s ) PDF Image . Normal (applies to [facility] (St non-numeric results) [facility] dical, ) ID Date Data Source [id number] 02/07/2019 12:00:00 AM EST [facility] ([facility] Name Value Range Interpretation Description Data Sup porting Code Source(s) Document(s ) No Lavender Test not Normal (applies to MEDGEN (S t Received performed non-numeric [facility] . results) Medical, ) ID Date Data Source [id number] 02/07/2019 12:00:00 AM EST [facility] ([facility], ) Name Value Range Interpretation Description Data Sup porting Code Source(s) Document(s ) Bilirubin.c 0.34 mg/dL Normal (applies to MEDGEN ( St onjugated non-numeric [facility] [Mass/volum results) Medical, ) e] in Serum or Plasma ID Date Data Source [id number] 02/07/2019 12:00:00 AM EST [facility] ([facility], ) Name Value Range Interpretation Description Data Sup porting Code Source(s) Document(s ) Glucose 283 Above high [facility] (St [Mass/volume] in mg/dL normal [facility] Urine collected for Medical, unspecified PC) duration Urea nitrogen 5 mg/dL Below low normal [facility] (S t [Mass/volume] in [facility] Serum or Plasma Medical, ) eGFR If NonAfricn 129 Normal (applies [facility]GEN (St Am mL/min/1 to non-numeric [facility] .73 results) Medical, ) Creatinine 0.73 Below low normal [facility] (St [Interpretation] in mg/dL [facility] Urine Medical, ) eGFR If Africn Am 149 Normal (applies [facility]GEN (St mL/min/1 to non-numeric [facility] .73 results) Medical, ) Sodium 141 Normal (applies [facility]GEN (St [Moles/volume] in mmol/L to non-numeric [facility] Serum or Plasma results) Medical, ) BUN/Creatinine 7 Below low normal MEDGEN ( St Ratio [facility], ) Chloride 100 Normal (applies [facility]GEN (St [Moles/volume] in mmol/L to non-numeric [facility] Serum or Plasma results) Medical, ) Potassium 4.4 Normal (applies MEDGEN (St [Mass/volume] in mmol/L to non-numeric [facility] Blood results) Medical, ) Carbon dioxide, 22 Normal (applies MEDGEN ( St total mmol/L to non-numeric [facility] [Moles/volume] in results) Medical, Serum or Plasma PC) Protein 7.4 g/dL Normal (applies [facility]GEN (St [Mass/volume] in to non-numeric [facility] Serum or Plasma results) Medical, ) Calcium 10.1 Normal (applies MEDGEN (St [Moles/volume] in mg/dL to non-numeric [facility] Urine collected for results) Medical, unspecified PC) duration Microalbumin 4.8 g/dL Normal (applies [facility]GEN (St [Mass/time] in to non-numeric [facility] Urine collected for results) Medical, unspecified PC) duration Globulin, Total 2.6 g/dL Normal (applies MEDGEN ( St to non-numeric [facility] results) Medical, PC) A/G Ratio 1.8 Normal (applies MEDGEN (St to non-numeric [facility] results) Medical, PC) Alkaline 98 IU/L Normal (applies MEDGEN (St phosphatase to non-numeric [facility] [Enzymatic results) Medical, activity/volume] in PC) Serum, Plasma or Blood Bilirubin.total 1.9 Above high [facility]GEN (St [Mass/volume] in mg/dL normal [facility] Serum or Plasma Medical, PC) Alanine 70 IU/L Above high [facility]GEN (St aminotransferase normal [facility] [Enzymatic Medical, activity/volume] in PC) Serum or Plasma Aspartate 45 IU/L Above high [facility] (St aminotransferase normal [facility] [Enzymatic Medical, activity/volume] in PC) Serum or Plasma Procedure Social History Code Duration Value Status Description Data Source(s ) Smoking 12/22/2019 no drinking no completed no drinking no MED[facility] (St 12:00:00 AM EDT smoking smoking [facility], PC) Smoking 12/22/2019 Unknown if ever completed Unknown if ever MEDG EN (St 12:00:00 AM EDT smoked smoked [facility] d[facility], PC) Smoking 11/20/2019 no drinking no completed no drinking no [facility] (St 12:00:00 AM EDT smoking smoking [facility] d[facility], PC) Smoking 11/20/2019 Unknown if ever completed Unknown if ever MEDG EN (St 12:00:00 AM EDT smoked smoked [facility] dical, PC) Smoking 10/21/2019 no drinking no completed no drinking no [facility] (St 12:00:00 AM EDT smoking smoking [facility] d[facility], PC) Smoking 10/21/2019 Unknown if ever completed Unknown if ever MEDG EN (St 12:00:00 AM EDT smoked smoked [facility] d[facility], PC) Smoking 2019 Denies Ever completed Denies Ever Smoked [facility] 02:16:00 AM EDT Smoked Medical C enter Smoking 10/15/2019 Denies Ever completed Denies Ever Smoked [facility] 07:45:00 PM EDT Smoked Medical C enter Smoking 10/15/2019 Denies Ever completed Denies Ever Smoked [facility] 07:31:00 PM EDT Smoked Medical C enter Smoking 09/07/2019 Denies Ever completed Denies Ever Smoked [facility] 03:25:00 PM EDT Smoked Medical C enter Smoking 09/07/2019 Denies Ever completed Denies Ever Smoked [facility] 03:09:00 PM EDT Smoked Medical C enter Smoking 03/10/2019 Denies Ever completed Denies Ever Smoked [facility] 12:31:00 AM EST Smoked Medical C enter Smoking 03/09/2019 Denies Ever completed Denies Ever Smoked [facility] 10:40:00 PM EST Smoked Medical C enter Smoking 03/09/2019 Denies Ever completed Denies Ever Smoked [facility] 09:52:00 PM EST Smoked Medical C enter Vital Signs ID Date Data Source UNK Name Value Range Interpretation Code Description Data Source(s) Body mass index 34.9 kg/m2 34.9 kg/m2 [facility] (S t (BMI) [Ratio] [facility], ) Diastolic blood 92 mm[Hg] 92 mm[Hg] MEDGEN (S t pressure [facility]) Systolic blood 148 mm[Hg] 148 mm[Hg] [facility] [place] Body weight 223 lb 223 lb [facility] [facility]) [facility] 67 in 67 [facility] Body mass index 34.9 kg/m2 34.9 kg/m2 MED[facility] (S t (BMI) [Ratio] [facility] [place]) Diastolic blood 80 mm[Hg] 80 mm[Hg] [facility] (S t [facility]) Systolic blood 140 mm[Hg] 140 mm[Hg] [facility] [place] [place] Body weight 223 lb 223 lb [facility] ([facility]) Body height 67 in 67 in [facility] ([facility]) Body mass index 34.9 kg/m2 34.9 kg/m2 [facility] (S t (BMI) [Ratio] [facility], ) Diastolic blood 80 mm[Hg] 80 mm[Hg] MEDGEN (S pressure [facility]) Systolic blood 140 mm[Hg] 140 mm[Hg] MEDGEN ([facility] , ) Body weight 223 lb 223 lb [facility] ([facility]) Body height 67 in 67 in [facility] ([facility]) Heart rate 87 /min 87 /min [facility] ([facility]) Inhaled oxygen 98 % 98 % MED[facility] ([facility], ) Body mass index 32.3 kg/m2 32.3 kg/m2 MED[facility] (S t (BMI) [Ratio] [facility], ) Diastolic blood 84 mm[Hg] 84 mm[Hg] MEDGEN (S t pressure [facility] , ) Systolic blood 142 mm[Hg] 142 mm[Hg] MEDGEN ([facility] , ) Body weight 206 lb 206 lb [facility] ([facility]) Body height 67 in 67 in [facility] ([facility]) Heart rate 87 /min 87 /min [facility] ([facility]) Inhaled oxygen 98 % 98 % [facility] ([facility], ) Body mass index 32.3 kg/m2 32.3 kg/m2 MED[facility] (S t (BMI) [Ratio] [facility], ) Diastolic blood 84 mm[Hg] 84 mm[Hg] MED[facility] (S t pressure [facility]) Systolic blood 142 mm[Hg] 142 mm[Hg] [facility] [place] [place] Body weight 206 lb 206 lb [facility] ([facility]) Body height 67 in 67 in [facility] ([facility]) Heart rate 87 /min 87 /min [facility] ([facility]) Inhaled oxygen 98 % 98 % [facility] ([facility], ) Body mass index 32.3 kg/m2 32.3 kg/m2 MED[facility] (S t (BMI) [Ratio] [facility], ) Diastolic blood 84 mm[Hg] 84 mm[Hg] MED[facility] (S t pressure [facility]) Systolic blood 142 mm[Hg] 142 mm[Hg] MED[facility] ([facility] , ) Body weight 206 lb 206 lb [facility] ([facility]) Body height 67 in 67 in [facility] ([facility]) Body temperature 37.658245 [id number] [facility] Respiratory rate 17 /min 17 /min [facility] Oxygen saturation 99 % 99 % [facility] blood [facility] by Pulse oximetry Heart rate 93 /min 93 /min [facility] Diastolic blood 81 mm[Hg] 81 mm[Hg] [facility] pressure [facility] Systolic blood 142 mm[Hg] 142 mm[Hg] [facility] Body temperature 37.998092 37.058947 [facility] Respiratory rate 17 /min 17 /min [facility] Oxygen saturation 100 % 100 % [facility] blood [facility] by Pulse oximetry Heart rate 110 /min 110 /min [facility] Diastolic blood 85 mm[Hg] 85 mm[Hg] [facility] pressure [facility] Systolic blood 162 mm[Hg] 162 mm[Hg] [facility] Body weight 112.551107 112.480022 kg [facility] Measured kg [facility] Center Body temperature 36.673868 36.237503 [facility] Respiratory rate 19 /min 19 /min [facility] Oxygen saturation 98 % 98 % [facility] blood [facility] by Pulse oximetry Heart rate 109 /min 109 /min [facility] Body height 167.453628 167.091640 cm [facility] [place] Diastolic blood 94 mm[Hg] 94 mm[Hg] [facility] Systolic blood 144 mm[Hg] 144 mm[Hg] [facility] Body mass index 39.8 kg/m2 39.8 kg/m2 [facility] (BMI) [Ratio] [facility] Body temperature 36.574159 36.321586 [facility] Oxygen saturation 97 % 97 % [facility] by Pulse oximetry Heart rate 83 /min 83 /min [facility] Diastolic blood 87 mm[Hg] 87 mm[Hg] [facility] pressure [facility] Center Systolic blood 137 mm[Hg] 137 mm[Hg] [facility] Body weight 105.451056 105.886206 kg [facility] Measured kg [facility] Body temperature 36.552810 36.677159 [facility] Respiratory rate 18 /min 18 /min [facility] Oxygen saturation 95 % 95 % [facility] Arterial blood [facility] by Pulse oximetry Heart rate 95 /min 95 /min [facility] Diastolic blood 96 mm[Hg] 96 mm[Hg] [facility] pressure [facility] Systolic blood 186 mm[Hg] 186 mm[Hg] [facility] pressure [facility] Body mass index 35.7 kg/m2 35.7 kg/m2 [facility] (S t (BMI) [Ratio] [facility], ) Diastolic blood 80 mm[Hg] 80 mm[Hg] MED[facility] (S t pressure [facility]) Systolic blood 140 mm[Hg] 140 mm[Hg] [facility] ([facility] , ) Body weight 228 lb 228 lb [facility] ([facility]) Body height 67 in in [facility] ([facility]) Body mass index 35.7 kg/m2 35.7 kg/m2 [facility] (S t (BMI) [Ratio] [facility], ) Diastolic blood 80 mm[Hg] 80 mm[Hg] [facility] (S t [facility]) Systolic blood 140 mm[Hg] 140 mm[Hg] [facility] [place] [place] Body weight 228 lb 228 lb [facility] ([facility]) Body height in in [facility] ([facility]) Body mass index 35.7 kg/m2 35.7 kg/m2 [facility] (S t (BMI) [Ratio] [facility], ) Diastolic blood 80 mm[Hg] 80 mm[Hg] [facility] (S t pressure [facility]) Systolic blood 140 mm[Hg] 140 mm[Hg] [facility] [place] [place] Body weight 228 lb 228 lb [facility] ([facility]) Body height 67 in in [facility] ([facility])
--- NOTE | 2020-01-10 01:05 | PDOC ---
History of Present Illness - General Stated Complaint: SHORTNESS OF BREATH Time Seen by Provider: 01/10/20 01:04 - History of Present Illness Initial Comments: 01/10/20 01:05 HPI: 24 y/o M with hx of IDDM and HTN presenting due to referral from urgent care for abnormal ekg. Patient reports 3-4 days of nocturnal SOB describing it as a "asthma acting up" and "cant get air in." He also reports palpitations and PND over the past 3-4days. He still feels SOB now. He also reports transient midsternal and left sided chest pain without any triggers. He denies fever, chills, abd pain, n/v, recent travel, recent URI, sick contacts, LH, YOON, sore throat PMHx: as noted above ROS: as noted SHx: Denies tobacco use; no alcohol use; no rec drugs Allergies: NKDA ROS: GENERAL/CONSTITUTIONAL: No fever or chills. No weakness. HEAD, EYES, EARS, NOSE AND THROAT: No change in vision. No ear pain or discharge. No sore throat. CARDIOVASCULAR: No chest pain or shortness of breath RESPIRATORY: No cough, wheezing, or hemoptysis. GASTROINTESTINAL: No nausea, vomiting, diarrhea or constipation. GENITOURINARY: No dysuria, frequency, or change in urination. MUSCULOSKELETAL: No joint or muscle swelling or pain. No neck or back pain. SKIN: No rash NEUROLOGIC: No headache, vertigo, loss of consciousness, or change in strength/sensation. ENDOCRINE: No increased thirst. No abnormal weight change HEMATOLOGIC/LYMPHATIC: No anemia, easy bleeding, or history of blood clots. ALLERGIC/IMMUNOLOGIC: No hives or skin allergy. PE: GENERAL: Awake, alert, and fully oriented, no acute distress HEAD: No signs of trauma, normocephalic, atraumatic EYES: EOMI, sclera anicteric, conjunctiva clear ENT: Auricles normal inspection, hearing grossly normal, nares patent, oropha rynx clear without exudates. Moist mucosa NECK: Normal ROM, no lymphadenopathy LUNGS: No increased work of breathing, symmetrical chest rise, clear to auscultation bilaterally, no wheezes, crackles or rhonchi HEART: Regular rate, regular rhythm, normal S1 and S2, no murmur, peripheral pulses 2+ and equal bilaterally. ABDOMEN: Soft, nondistended, nontender. No guarding, no rebound. No masses. No CVAT MUSCULOSKELETAL: FROM NEUROLOGICAL: Cranial nerves II through XII grossly intact. Normal speech, stable gait, no focal sensorimotor deficits Past History - Medical History Allergies/Adverse Reactions: Allergies Allergy/AdvReac Type Severity Reaction Status Date / Time No Known Allergies Allergy Verified 01/10/20 01:06 ED Treatment Course - LABORATORY CBC & Chemistry Diagram: 01/10/20 01:35 01/10/20 01:35 Medical Decision Making - Medical Decision Making 01/10/20 02:49 24 y/o M with hx of IDDM and HTN presenting due to referral from urgent care for abnormal ekg. Patient reports 3-4 days of nocturnal SOB describing it as a "asthma acting up" and "cant get air in." He also reports palpitations and PND over the past 3-4days. VSS, AF. PE with reproducible pain on chest palpation FH with early WI and cardiac in dad in his 40s. r/o cardiac etiology -cbc, cmp, card prof, bnp, mg, ekg, cxr -reassess 01/10/20 02:50 labs wnl ekg nsr with no shane/d cxr with no acute pathology motrin for pain control and dc home; pt has appt scheduled mon with card all questions answered Discharge - Discharge Information Problems reviewed: Yes Clinical Impression/Diagnosis: Atypical chest pain, Shortness of breath, Chest pain Condition: Improved Disposition: HOME - Follow up/Referral Referrals: Abelardo Walker MD [Primary Care Provider] - Karley Grande MD [Staff Physician] - - Patient Discharge Instructions Patient Printed Discharge Instructions: DI for Atypical Chest Pain Additional Instructions: Additional Instructions: Please return to the emergency department with any new or worsening symptoms or concerns. 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
[2020-01-10 01:06] VITALS: BMI 34.0
[2020-01-10 01:19] VITALS: TEMP 98.9
--- NOTE | 2020-01-10 01:32 | PDOC ---
Attending Attestation - Resident Resident Name: Lona Salmon - ED Attending Attestation I have performed the following: I have examined & evaluated the patient, The case was reviewed & discussed with the resident, I agree w/resident's findings & plan - HPI HPI: 01/10/20 02:20 Pt states that he is anxious and that he has had CP x 3 to 4 days. Pt is overweight and has no job. Pt has DM and HTN and high cholesterol. He has no asthma and he's not a smoker and uses no drugs. - Physicial Exam PE: 01/10/20 02:21 Normal exam Pt overweight heart and lungs normal abd soft NT ND no flank pain - Medical Decision Making 01/10/20 02:22 Pt has normal labs. TSH elevated. Pt will be asked to follow with endocrinology Dr. Grande 01/10/20 03:37 CXR normal Heart Score/ECG Review - ECG Intrepretation Rhythm: Regular Rhythm - Cabins Cabins: Normal - P and [place] Delta Wave(s) Present: No WPW: No - QRS Poor R Wave Progression: No Q Wave Present: No - ST and T Early Repolarization: No Non Specific ST-T Wave changes: No - ECG Impressions Normal ECG: Yes Non-specific ST Elevation: No Ischemic Changes: No Bradycardia: No Torsades toni Pointes: No Discharge - Discharge Information Problems reviewed: Yes Clinical Impression/Diagnosis: Atypical chest pain, Shortness of breath, Chest pain Condition: Improved Disposition: HOME - Follow up/Referral Referrals: Abelardo Walker MD [Primary Care Provider] - Karley Grande MD [Staff Physician] - - Patient Discharge Instructions Patient Printed Discharge Instructions: DI for Atypical Chest Pain Additional Instructions: Additional Instructions: Please return to the emergency department with any new or worsening symptoms or concerns. 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
[2020-01-10 01:44] LABS: BASO % 0.8 % (0-2.0); EOS % 1.7 % (0-4.5); HEMATOCRIT 46.6 % (35.4-49); HEMOGLOBIN 16.5 GM/dL (11.7-16.9); LYMPH % 41.6 % (8-40); MCH 30.1 pg (25.7-33.7); MCHC 35.3 g/dl (32.0-35.9); MEAN PLT VOLUME 8.8 fl (7.5-11.1); MONO % 5.9 % (3.8-10.2); PLATELET COUNT 258 K/MM3 (134-434); RBC 5.48 M/mm3 (4.00-5.60); RDW 12.9 % (11.9-15.9); WHITE BLOOD COUNT 10.3 K/mm3 (4.0-10.0)
[2020-01-10 01:57] LABS: INR 0.99 (0.83-1.09); PROTHROMBIN TIME (PATIENT) 11.7 SEC (9.7-13.0)
[2020-01-10 01:59] LABS: ACTIVATED PTT 29.9 SECONDS (25.2-36.5)
[2020-01-10 02:11] LABS: ALBUMIN 3.9 g/dl (3.4-5.0); ALK PHOS 99 U/L (45-117); BILIRUBIN,TOTAL 1.8 mg/dL (0.2-1); BLOOD UREA NITROGEN 12.5 mg/dL (7-18); CALCIUM 9.5 mg/dL (8.5-10.1); CO2 26 mmol/L (21-32); CREATININE 0.8 mg/dL (0.55-1.3); GLUCOSE,RANDOM 264 mg/dL (74-106); MAGNESIUM 1.8 mg/dL (1.8-2.4); N-TERMINAL BNP 6.6 pg/ml (5-125); POTASSIUM 3.8 mmol/L (3.5-5.1); SGOT/AST 23 U/L (15-37); SGPT/ALT 46 U/L (13-61); SODIUM 137 mmol/L (136-145); TOT PROT 7.3 g/dl (6.4-8.2)
[2020-01-10 02:34] LABS: CHLORIDE 101 mmol/L (98-107)
[2020-01-10 02:35] LABS: ANION GAP 32 MMOL/L (8-16)
[2020-01-10] MEDS ORDERED: IBUPROFEN 600 MG TABLET (FP) PO ONE ×2 (02:53→03:00)
[2020-01-10 03:40] VITALS: BP 130/75; PULSE 80
--- NOTE | 2020-01-11 06:59 | EKG ---
Test Reason : Blood Pressure : / mmHG Vent. Rate : 083 BPM Atrial Rate : 083 BPM P-R Int : 146 ms QRS Dur : 096 ms QT Int : 378 ms P-R-T Axes : 055 077 048 degrees QTc Int : 444 ms NORMAL SINUS RHYTHM NORMAL ECG NO PREVIOUS ECGS AVAILABLE BASELINE ARTIFACT Confirmed by DEMI ALEGRIA, YOHANA ([id number]) on 01/11/2020 6:59:18 AM Referred By: Confirmed By:YOHANA SIMMS MD
== END 2020-01-10 03:39 | disposition home or self-care (01) ==
LOC: JER 23:52
DX: R06.02 Shortness of breath (principal); R07.9 Chest pain, unspecified
CPT/HCPCS: 36415; 71046-TC-FY; 80053; 82550; 83735; 83880; 84443; 84484; 85025; 85610; 85730; 93005; 93010; 99285-25